=== PATIENT | female | born 1970 | race Caucasian/White ===

== ENCOUNTER 2016-07-01 07:19 | Inpatient (IN) | payer BC ==
[~2016-07-01 07:19] MED LIST: AGRYLIN0.5 M1 PO; CLARITIN10 M6 PO; CULTURELLE1 EAC1 PO; NORCO 7.5-3251 EACH PO; NORVASC10 M2 PO; PLAVIX75 M1 PO; PREDNISONE20 M1 PO; PRENATAL-U CAPS1 CAP PO; RANITIDINE HCL150 M3 PO; XARELTO20 M1 PO
[2016-07-01 11:09] LABS: BASO % 0.2 % (0-2); EOS % 11.5 % (0-7); EOSINOPHIL ABSOLUTE COUNT 1.2 tho/cmm (0.0-0.7); HCT-HEMATOCRIT 26.2 % (34.0-49.0); HGB-HEMOGLOBIN 8.1 gm/dl (12.0-15.5); IMMATURE GRANULOCYTES ABSOLUTE 0.02 tho/cmm (0-0.03); IMMATURE GRANULOCYTES PERCENT 0.2 % (0-0.3); LYMPH % 30.4 % (20-45); LYMPH ABSOLUTE COUNT 3.3 tho/cmm (0.8-4.5); MCH (MEAN CORPUSCULAR HGB) 27.8 pg (28.0-32.0); MCHC MEAN CORPUSCULAR HGB CONC 30.9 % (32.0-36.0); MEAN PLATELET VOLUME 9.9 cmc (9.4-12.4); MONO % 15.9 % (0-12); MONOCYTE ABSOLUTE COUNT 1.7 tho/cmm (0.0-1.2); NEUTROPHIL ABSOLUTE COUNT 4.5 tho/cmm (1.6-8.0); NEUTROPHIL-AUTOMATED 4.5 tho/cmm (1.6-8.0); NEUTROPHILS % 41.8 % (40-80); PLATELET COUNT 943 tho/cmm (150-450); RED BLOOD COUNT 2.91 mil/cmm (4.00-5.20); WHITE BLOOD COUNT 10.7 tho/cmm (4.0-10.0)
[2016-07-01 16:26] LABS: URINE BILIRUBIN NEGATIVE (NEG); URINE BLOOD SMALL (NEG); URINE GLUCOSE (UA) NEGATIVE (NEG); URINE KETONE MODERATE (NEG); URINE LEUKOCYTE ESTERASE NEGATIVE (NEG); URINE NITRITE NEGATIVE (NEG); URINE PROTEIN MODERATE (NEG); URINE SPECIFIC GRAVITY 1.015 (1.003-1.030)
[2016-07-01 16:41] LABS: URINE APPEARANCE HAZY; URINE COLOR YELLOW
[2016-07-01 17:01] LABS: URINE EPITHELIAL CELLS 0-2 /[HPF] (0-10); URINE RBC RARE /[HPF] (0-5); URINE WBC 0-1 /[HPF] (0-5)
[2016-07-01 17:02] LABS: URINE AMORPHOUS 1+; URINE MUCUS 1+
--- NOTE | 2016-07-01 18:35 | NUR ---
VIRTUAL CARE NOTE: ASSESSMENT DEFERRED. PT. SLEEPING.
[2016-07-02 05:02] LABS: HCT-HEMATOCRIT 26.1 % (34.0-49.0); IMMATURE GRANULOCYTES ABSOLUTE 0.05 tho/cmm (0-0.03); IMMATURE GRANULOCYTES PERCENT 0.5 % (0-0.3); LYMPH % 13.5 % (20-45); LYMPH ABSOLUTE COUNT 1.5 tho/cmm (0.8-4.5); MCHC MEAN CORPUSCULAR HGB CONC 30.7 % (32.0-36.0); MCV (MEAN CELL VOLUME) 91.3 fl (82.0-96.0); MEAN PLATELET VOLUME 9.3 cmc (9.4-12.4); MONO % 10.6 % (0-12); MONOCYTE ABSOLUTE COUNT 1.1 tho/cmm (0.0-1.2); NEUTROPHIL ABSOLUTE COUNT 8.1 tho/cmm (1.6-8.0); NEUTROPHIL-AUTOMATED 8.1 tho/cmm (1.6-8.0); NEUTROPHILS % 75.4 % (40-80); PLATELET COUNT 946 tho/cmm (150-450); RED BLOOD COUNT 2.86 mil/cmm (4.00-5.20); WHITE BLOOD COUNT 10.7 tho/cmm (4.0-10.0)
[2016-07-02 05:04] LABS: INR 1.1 INR (0.9-1.1); PROTHROMBIN TIME 12.6 SECONDS (9.0-13.6)
[2016-07-02 05:08] LABS: ANION GAP 13 mmol/L (0-20); BLOOD UREA NITROGEN 8 mg/dl (6-24); CARBON DIOXIDE-VENOUS 26 mmol/L (22-32); CHLORIDE 105 mmol/l (96-110); CREATININE 0.91 mg/dl (0.50-1.10); GLUCOSE 174 mg/dL (70-110); POTASSIUM 3.9 mmol/L (3.7-5.1); SODIUM 140 mmol/L (135-145); eGFR VALUE FOR BLACK 88 mL/Min
--- NOTE | 2016-07-02 16:40 | NUR ---
VIRTUAL CARE NOTE: PT AWAKE AND RESTING IN BED. PT STATES FEELING WELL, TOLERATING FULL LIQUID DIET. PATEL DCD TODAY, PT STATES VOIDING W/O DIFFICULTY. DISCUSSED OSTOMY CARES. PT TO HAVE [facility] WHEN DCD. QUESTIONS ANSWERED. VN WILL CONTINUE TO MONITOR RECORD AND FOLLOW W/ PT
--- NOTE | 2016-07-03 18:56 | NUR ---
VN/LEADER ROUNDING-VISITED WITH PATIENT SHE LAY IN BED FEELING NAUSEATED. NURSE JUST GAVE HER SOMETHING FOR NAUSEA SO HOPEFULLY THAT HELPS AND SHE IS CURRENTY NOT ON IV FLUIDS AND SHE SAID TOMMIE SAID THEY MIGHT START HER BACK UP ON THEM. PAIN IS STAYING CONTROLLED. I CONFIRMED THAT THEE CAME IN LAST NIGHT AND DID SOME STOMA TEACHING AND PATIENT HAD NO FURTHER QUESTIONS ON THAT BUT WANTS SOME MORE HANDS ON TEACHING BUT NOT WHEN FEELING LIKE SHE IS NOW. CALL LIGHTS ARE BEING ANSWERED TIMELY AND EVERYTHING IS GOOD SO NO OTHER SUGGETIONS TO MAKE STAY EXCELLENT.
[2016-07-04 06:23] LABS: HGB-HEMOGLOBIN 9.7 gm/dl (12.0-15.5); PLATELET COUNT 957 tho/cmm (150-450)
--- NOTE | 2016-07-04 12:58 | NUR ---
VIRTUAL CARE NOTE: VISITED W/ PT AT THIS TIME. FAMILY AT BEDSIDE. D/W PT THE PLAN OF CARE. ANSWERED HER QUESTIONS. STATES SHE'S FEELING BETTER, BUT HAD A ROUGH NIGHT D/T NAUSEA AND EMESIS. NONE SINCE. IS STRICT NPO AT THIS TIME. ENCOURAGED I.S. - SHE STATES SHE WILL CONTINUE TO WORK ON IT. STATES THAT AN OSTOMY BAG REMAINS OVER HER INCISION IT CONTINUES TO DRAIN, ESPECIALLY WHEN SHE GETS UP TO WALK. HAS NO FURTHER NEEDS. ENC HER TO CALL VN IF SHE HAS QUESTIONS. WILL CONTINUE TO MONITOR. ELECTRONIC CHART REVIEWED.
--- NOTE | 2016-07-05 12:09 | NUR ---
VIRTUAL CARE NOTE: PT RESTING ON BED, STATES DOING OK, [place] [facility] WILL PLAN TO ADVANCE TO [facility] [place] AT [facility]. POST-OP CARE REVIWED WITH PT, AMBULATES GOOD, ABD INCISION STILL DRAINING A LOT YET. DRESSING CHANGE PRN AND IVF REPLACEMENT PER ORDER. PT DENIES ANY NEEDS OR CONCENRS AT THIS TIME.
--- NOTE | 2016-07-05 21:07 | NUR ---
VN ROUNDING-PATIENT LAYING IN BED WITH SOME PAIN AND DISCOMFORT BUT SAID THE NURSE IS TAKING CARE OF IT. SHE HAD A REGULAR FOOD FOR DINNER AND IT HURT BUT SHE ATE A SMALL AMOUNT. SHE IS ALSO WAITING FOR NURSE TO COME IN AT CHANGE HER DRESSING IT HAS LEAKED ALL OVER. AID IN ROOM AT THIS TIME. NO OTHER CONCERNS OR QUESTIONS AT THIS TIME
[2016-07-06 03:34] LABS: BASO % 0.1 % (0-2); EOS % 1.7 % (0-7); EOSINOPHIL ABSOLUTE COUNT 0.4 tho/cmm (0.0-0.7); HCT-HEMATOCRIT 25.4 % (34.0-49.0); HGB-HEMOGLOBIN 7.9 gm/dl (12.0-15.5); IMMATURE GRANULOCYTES ABSOLUTE 0.14 tho/cmm (0-0.03); IMMATURE GRANULOCYTES PERCENT 0.7 % (0-0.3); LYMPH % 16.6 % (20-45); LYMPH ABSOLUTE COUNT 3.4 tho/cmm (0.8-4.5); MCH (MEAN CORPUSCULAR HGB) 27.1 pg (28.0-32.0); MCHC MEAN CORPUSCULAR HGB CONC 31.1 % (32.0-36.0); MCV (MEAN CELL VOLUME) 87.3 fl (82.0-96.0); MEAN PLATELET VOLUME 8.7 cmc (9.4-12.4); MONO % 7.2 % (0-12); MONOCYTE ABSOLUTE COUNT 1.5 tho/cmm (0.0-1.2); NEUTROPHIL ABSOLUTE COUNT 14.9 tho/cmm (1.6-8.0); NEUTROPHIL-AUTOMATED 14.9 tho/cmm (1.6-8.0); NEUTROPHILS % 73.7 % (40-80); PLATELET COUNT 857 tho/cmm (150-450); RED BLOOD COUNT 2.91 mil/cmm (4.00-5.20); RED CELL DISTRIBUTION WIDTH 15.5 % (12.4-16.4); WHITE BLOOD COUNT 20.2 tho/cmm (4.0-10.0)
[2016-07-06 06:15] LABS: URINE BILIRUBIN NEGATIVE (NEG); URINE BLOOD NEGATIVE (NEG); URINE GLUCOSE (UA) NEGATIVE (NEG); URINE KETONE SMALL (NEG); URINE LEUKOCYTE ESTERASE NEGATIVE (NEG); URINE NITRITE NEGATIVE (NEG); URINE PROTEIN NEGATIVE (NEG)
[2016-07-06 06:20] LABS: URINE APPEARANCE HAZY; URINE COLOR YELLOW
[2016-07-06 06:30] LABS: URINE RBC 0 /[HPF] (0-5)
[2016-07-06 06:32] LABS: URINE MUCUS 2+; URINE WBC 0-2 /[HPF] (0-5)
--- NOTE | 2016-07-06 19:25 | NUR ---
VIRTUAL CARE NOTE. THIS NURSE ROUNDS FLOOR RN IS IN ROOM. PT. IS IN BED AND STATES SHE IS FEELING BAD TONIGHT, HAVING PAIN IN ABD. AREA. DENIE CHEST PAIN OR SOB. RN REPORTS HEART RATE IS IN 150'S. ALSO STATES SHE HAS PERULANT DRAINAGE AND LARGE AMOUNT OF SATURATION TO DRESSING TO ABD OPEN DERMABOND INCISION AREA. NOTED THIS RN VIEWS PT. IS MORE DISTENED IN ABD IN APPEARANCE THAN THIS AM. NG HAD BEEN PLACED PRIOR. O/C SURGEON BEING CALLED BY THIS RN. WILL CONTINUE TO MONITOR.
[2016-07-06 20:25] LABS: ANION GAP 15 mmol/L (0-20); BLOOD UREA NITROGEN 15 mg/dl (6-24); CALCIUM 8.7 mg/dl (8.5-10.5); CARBON DIOXIDE-VENOUS 24 mmol/L (22-32); CHLORIDE 99 mmol/l (96-110); CREATININE 0.83 mg/dl (0.50-1.10); GLUCOSE 133 mg/dL (70-110); MAGNESIUM 1.7 mg/dl (1.8-2.6); POTASSIUM 3.4 mmol/L (3.7-5.1); SODIUM 135 mmol/L (135-145); eGFR VALUE FOR BLACK >90 mL/Min
[2016-07-06 20:50] LABS: PROCALCITONIN 13.41 ng/ml (0.05-0.09)
[2016-07-07 00:02] LABS: INR 1.3 INR (0.9-1.1); PROTHROMBIN TIME 15.4 SECONDS (9.0-13.6)
[2016-07-07 03:53] LABS: ALB/GLOB RATIO 0.5 (0.8-2.0); ALBUMIN 1.8 g/dl (3.5-5.0); ALKALINE PHOSPHATASE 49 U/L (33-138); ALT/SGPT 19 U/L (12-78); ANION GAP 15 mmol/L (0-20); AST/SGOT 12 U/L (10-40); BILIRUBIN,TOTAL 0.3 mg/dl (0-1.5); BLOOD UREA NITROGEN 19 mg/dl (6-24); CALCIUM 7.4 mg/dl (8.5-10.5); CARBON DIOXIDE-VENOUS 22 mmol/L (22-32); CHLORIDE 102 mmol/l (96-110); CREATININE 1.06 mg/dl (0.50-1.10); GLUCOSE 147 mg/dL (70-110); MAGNESIUM 2.3 mg/dl (1.8-2.6); POTASSIUM 3.4 mmol/L (3.7-5.1); SODIUM 136 mmol/L (135-145); eGFR VALUE FOR BLACK 73 mL/Min
[2016-07-07 04:00] LABS: BASO % 0.1 % (0-2); EOS % 0.2 % (0-7); HCT-HEMATOCRIT 26.2 % (34.0-49.0); HGB-HEMOGLOBIN 8.2 gm/dl (12.0-15.5); IMMATURE GRANULOCYTES ABSOLUTE 0.04 tho/cmm (0-0.03); IMMATURE GRANULOCYTES PERCENT 0.2 % (0-0.3); LYMPH % 8.6 % (20-45); LYMPH ABSOLUTE COUNT 1.4 tho/cmm (0.8-4.5); MCH (MEAN CORPUSCULAR HGB) 27.2 pg (28.0-32.0); MCHC MEAN CORPUSCULAR HGB CONC 31.3 % (32.0-36.0); MCV (MEAN CELL VOLUME) 86.8 fl (82.0-96.0); MEAN PLATELET VOLUME 9.1 cmc (9.4-12.4); MONO % 6.2 % (0-12); NEUTROPHILS % 84.7 % (40-80); PLATELET COUNT 755 tho/cmm (150-450); RED BLOOD COUNT 3.02 mil/cmm (4.00-5.20); RED CELL DISTRIBUTION WIDTH 15.6 % (12.4-16.4); WHITE BLOOD COUNT 16.6 tho/cmm (4.0-10.0)
--- NOTE | 2016-07-07 17:02 | NUR ---
VN ROUNDING-DEFERRED AT THIS TIME PATIENT IS SLEEPING
[2016-07-08 06:04] LABS: EOSINOPHIL ABSOLUTE COUNT 0.1 tho/cmm (0.0-0.7); HGB-HEMOGLOBIN 6.6 gm/dl (12.0-15.5); IMMATURE GRANULOCYTES ABSOLUTE 0.03 tho/cmm (0-0.03); IMMATURE GRANULOCYTES PERCENT 0.3 % (0-0.3); LYMPH % 6.3 % (20-45); LYMPH ABSOLUTE COUNT 0.7 tho/cmm (0.8-4.5); MCV (MEAN CELL VOLUME) 85.7 fl (82.0-96.0); MEAN PLATELET VOLUME 8.8 cmc (9.4-12.4); MONOCYTE ABSOLUTE COUNT 0.7 tho/cmm (0.0-1.2); NEUTROPHILS % 85.4 % (40-80); PLATELET COUNT 781 tho/cmm (150-450); RED BLOOD COUNT 2.44 mil/cmm (4.00-5.20); RED CELL DISTRIBUTION WIDTH 15.6 % (12.4-16.4); WHITE BLOOD COUNT 10.5 tho/cmm (4.0-10.0)
[2016-07-08 06:11] LABS: HCT-HEMATOCRIT 20.9 % (34.0-49.0); MCHC MEAN CORPUSCULAR HGB CONC 31.6 % (32.0-36.0)
[2016-07-08 06:26] LABS: PROCALCITONIN 50.89 ng/ml (0.05-0.09)
[2016-07-08 06:31] LABS: ALB/GLOB RATIO 0.5 (0.8-2.0); ALBUMIN 1.6 g/dl (3.5-5.0); ALKALINE PHOSPHATASE 45 U/L (33-138); ALT/SGPT 12 U/L (12-78); ANION GAP 15 mmol/L (0-20); AST/SGOT 12 U/L (10-40); BILIRUBIN,TOTAL 0.3 mg/dl (0-1.5); BLOOD UREA NITROGEN 16 mg/dl (6-24); CALCIUM 7.3 mg/dl (8.5-10.5); CARBON DIOXIDE-VENOUS 19 mmol/L (22-32); CHLORIDE 105 mmol/l (96-110); GLUCOSE 109 mg/dL (70-110); SODIUM 135 mmol/L (135-145); eGFR VALUE FOR BLACK >90 mL/Min
[2016-07-08 06:33] LABS: CREATININE 0.39 mg/dl (0.50-1.10)
--- NOTE | 2016-07-08 09:35 | NUR ---
VIRTUAL CARE NOTE: ROUDING AND INTRODUCE SELF TO PT, PT DOES NOT NEEDS ANYTHING AT THIS TIME. CHART REVIEWED AND NOTED.
[2016-07-09 06:28] LABS: BASO % 0.1 % (0-2); EOS % 0.8 % (0-7); EOSINOPHIL ABSOLUTE COUNT 0.1 tho/cmm (0.0-0.7); HCT-HEMATOCRIT 31.3 % (34.0-49.0); IMMATURE GRANULOCYTES ABSOLUTE 0.06 tho/cmm (0-0.03); IMMATURE GRANULOCYTES PERCENT 0.6 % (0-0.3); LYMPH % 6.8 % (20-45); LYMPH ABSOLUTE COUNT 0.7 tho/cmm (0.8-4.5); MCHC MEAN CORPUSCULAR HGB CONC 32.6 % (32.0-36.0); MCV (MEAN CELL VOLUME) 86.5 fl (82.0-96.0); MEAN PLATELET VOLUME 9.1 cmc (9.4-12.4); MONO % 8.9 % (0-12); MONOCYTE ABSOLUTE COUNT 0.9 tho/cmm (0.0-1.2); NEUTROPHIL ABSOLUTE COUNT 8.8 tho/cmm (1.6-8.0); NEUTROPHIL-AUTOMATED 8.8 tho/cmm (1.6-8.0); NEUTROPHILS % 82.8 % (40-80); PLATELET COUNT 900 tho/cmm (150-450); RED BLOOD COUNT 3.62 mil/cmm (4.00-5.20); RED CELL DISTRIBUTION WIDTH 14.7 % (12.4-16.4); WHITE BLOOD COUNT 10.6 tho/cmm (4.0-10.0)
[2016-07-09 06:33] LABS: HGB-HEMOGLOBIN 10.2 gm/dl (12.0-15.5); MCH (MEAN CORPUSCULAR HGB) 28.1 pg (28.0-32.0)
[2016-07-09 06:36] LABS: ANION GAP 15 mmol/L (0-20); BLOOD UREA NITROGEN 10 mg/dl (6-24); CALCIUM 7.7 mg/dl (8.5-10.5); CARBON DIOXIDE-VENOUS 20 mmol/L (22-32); CHLORIDE 105 mmol/l (96-110); CREATININE 0.47 mg/dl (0.50-1.10); GLUCOSE 103 mg/dL (70-110); SODIUM 137 mmol/L (135-145); eGFR VALUE FOR BLACK >90 mL/Min
[2016-07-09 06:38] LABS: POTASSIUM 3.1 mmol/L (3.7-5.1)
[2016-07-09 07:27] LABS: PROCALCITONIN 30.26 ng/ml (0.05-0.09)
--- NOTE | 2016-07-09 19:40 | NUR ---
VIRTUAL CARE NOTE: ASSESSMENT DEFERRED. PT. SLEEPING.
[2016-07-10 05:14] LABS: BASO % 0.1 % (0-2); EOS % 1.7 % (0-7); EOSINOPHIL ABSOLUTE COUNT 0.2 tho/cmm (0.0-0.7); HCT-HEMATOCRIT 33.2 % (34.0-49.0); IMMATURE GRANULOCYTES ABSOLUTE 0.06 tho/cmm (0-0.03); IMMATURE GRANULOCYTES PERCENT 0.5 % (0-0.3); LYMPH % 14.8 % (20-45); LYMPH ABSOLUTE COUNT 1.9 tho/cmm (0.8-4.5); MCH (MEAN CORPUSCULAR HGB) 28.5 pg (28.0-32.0); MCHC MEAN CORPUSCULAR HGB CONC 33.1 % (32.0-36.0); MONO % 8.8 % (0-12); MONOCYTE ABSOLUTE COUNT 1.1 tho/cmm (0.0-1.2); NEUTROPHIL ABSOLUTE COUNT 9.4 tho/cmm (1.6-8.0); NEUTROPHIL-AUTOMATED 9.4 tho/cmm (1.6-8.0); NEUTROPHILS % 74.1 % (40-80); RED BLOOD COUNT 3.86 mil/cmm (4.00-5.20); RED CELL DISTRIBUTION WIDTH 14.9 % (12.4-16.4); WHITE BLOOD COUNT 12.6 tho/cmm (4.0-10.0)
[2016-07-10 05:23] LABS: PLATELET COUNT 1019 tho/cmm (150-450)
[2016-07-10 05:24] LABS: ANION GAP 15 mmol/L (0-20); BLOOD UREA NITROGEN 5 mg/dl (6-24); CALCIUM 7.8 mg/dl (8.5-10.5); CARBON DIOXIDE-VENOUS 21 mmol/L (22-32); CHLORIDE 102 mmol/l (96-110); CREATININE 0.38 mg/dl (0.50-1.10); GLUCOSE 92 mg/dL (70-110); POTASSIUM 3.7 mmol/L (3.7-5.1); SODIUM 134 mmol/L (135-145); eGFR VALUE FOR BLACK >90 mL/Min
--- NOTE | 2016-07-10 10:05 | NUR ---
VIRTUAL CARE NOTE: CALL PLACED TO HEMO'S OFFICE REGARDING ELEVATED PLATELET, PER ANSWERING SERVICE JACEK ROGERS IS ONCALL WILL CALL BACK WITH PROVIDED NUMBER IS NEISHA RN FLOOR NURSE. VN INFORMED NEISHA REGARDING TO THIS NOTIFICATION.
--- NOTE | 2016-07-10 16:29 | NUR ---
VIRTUAL CARE NOTE: PT JUST CAME BACK FROM WALKING, STATES FEELING BETTER TODAY. PLAN OF CARE REVIEWED, PT TAKING ORAL PAIN PILL TODAY STATES STILL HURTING QUIET A LOT YET, INFORMATION ABOUT PAIN PILLS GIVEN. PT DENIES ANY FURTHER NEEDS OR CONCERNS.
[2016-07-11 02:08] LABS: BASO % 0.1 % (0-2); EOS % 0.6 % (0-7); EOSINOPHIL ABSOLUTE COUNT 0.1 tho/cmm (0.0-0.7); HCT-HEMATOCRIT 30.7 % (34.0-49.0); HGB-HEMOGLOBIN 10.3 gm/dl (12.0-15.5); IMMATURE GRANULOCYTES ABSOLUTE 0.04 tho/cmm (0-0.03); IMMATURE GRANULOCYTES PERCENT 0.4 % (0-0.3); LYMPH % 8.4 % (20-45); LYMPH ABSOLUTE COUNT 0.9 tho/cmm (0.8-4.5); MCH (MEAN CORPUSCULAR HGB) 28.9 pg (28.0-32.0); MCHC MEAN CORPUSCULAR HGB CONC 33.6 % (32.0-36.0); MONO % 10.2 % (0-12); MONOCYTE ABSOLUTE COUNT 1.1 tho/cmm (0.0-1.2); NEUTROPHIL ABSOLUTE COUNT 8.8 tho/cmm (1.6-8.0); NEUTROPHIL-AUTOMATED 8.8 tho/cmm (1.6-8.0); NEUTROPHILS % 80.3 % (40-80); RED BLOOD COUNT 3.57 mil/cmm (4.00-5.20); RED CELL DISTRIBUTION WIDTH 14.9 % (12.4-16.4)
[2016-07-11 02:09] LABS: PLATELET COUNT 1041 tho/cmm (150-450)
--- NOTE | 2016-07-11 12:51 | NUR ---
VIRTUAL CARE NOTE: RESTING ON CHAIR, STATES FEELING GOOD TODAY, OSTOMY OUTPUT IS BETTER AND GETTING THICKER. PT DENIES NEEDS OR CONCERNS, PLAN FOR HOME SOON.
[2016-07-12 05:59] LABS: HGB-HEMOGLOBIN 10.2 gm/dl (12.0-15.5)
[2016-07-12 06:07] LABS: PLATELET COUNT 1229 tho/cmm (150-450)
[2016-07-12] MEDS ORDERED: IMODIUM A-D2 M4 PO (17:23)
[2016-07-12] MEDS ORDERED: METAMUCIL0.4 GM PO (17:24)
[2016-07-12] MEDS ORDERED: VITAMIN A10000 UNI2 PO (17:26)
[2016-10-31] MEDS ORDERED: BACITRACIN1 G1 TOP (11:15)
[2016-10-31] MEDS ORDERED: VITAMIN A10000 UNI2 PO (11:16)
[2016-10-31] MEDS ORDERED: MOTRIN IB200 M1 PO (12:31)
== END 2016-07-12 18:15 | DRG 329 ==
LOC: SHSA 07:19 → ORW 11:08 → PACU 15:17 → 5WD 17:05
PROVIDERS: Anesthesiology; Colon & Rectal Surgery; Hospitalist; Internal Medicine; Physician Assistant; Registered Nurse; Surgery; ADMIT Surgery
PROC: 0DTE0ZZ Resection of Large Intestine, Open Approach (ICD-10-PCS; principal; 2016-07-01)
PROC: 05H933Z Insertion of Infusion Device into Right Brachial Vein, Percutaneous Approach (ICD-10-PCS; 2016-07-01)
DX: K51.90 Ulcerative colitis, unspecified, without complications (principal); A41.9 Sepsis, unspecified organism; R00.0 Tachycardia, unspecified
CPT/HCPCS: C1751; C9113; J0131; J1170; J1335; J1644; J1650; J1720; J2250; J2270; J2405; J3010; J3370; J3475; J3480; J7030; J7121; J7512; P9016; Q9967